=== PATIENT | male | born 1975 | race Caucasian/White ===

== ENCOUNTER 2022-02-15 08:20 | Observation (INO) | payer BC, SELFPAY ==
[2022-02-15 08:23] VITALS: BP 139/88; PULSE 94; RESP 16; TEMP 36.6; O2SAT 98; BMI 28.7
--- NOTE | 2022-02-15 08:54 | CTR_ITS ---
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 Radiation optimization: All CT scans at this facility use at least one of these dose optimization techniques: automated exposure control; mA and/or kV adjustment per patient size (includes targeted exams where dose is matched to clinical indication); or iterative reconstruction. Contrast material: OMNIPAQUE 300; Contrast volume: 50 ml; Contrast route: INTRAVENOUS (IV); COMPARISON: No relevant prior studies available. RADIATION DOSE METRICS: Total DLP (mGy-cm): 2061.35 FINDINGS: Lungs: The visualized lung bases demonstrate no focal airspace opacification or pleural effusion. Heart: The visualized heart is within normal limits for size. There is no evidence of pericardial abnormality. Liver: The liver is normal in size and contour. Gallbladder and bile ducts: The gallbladder is distended with normal wall thickness and does not demonstrate calcified gallstones. No intra- or extra-hepatic biliary ductal dilatation. Pancreas: The pancreas appears normal. Spleen: The spleen appears normal. Adrenal glands: The adrenals appear normal. Kidneys and ureters: The kidneys enhance symmetrically and empty into non-dilated ureters. Stomach and bowel: The stomach is appropriately distended and without wall abnormalities. The small bowel loops are not abnormally dilated. The large bowel loops are not abnormally dilated. Appendix: The appendix appears normal. Intraperitoneal space: No ascites or significant fluid collection. Vasculature: The aorta is nonaneurysmal. The IVC appears normal. Lymph nodes: Solitary enlarged right inguinal lymph node measuring up to 1.1 cm in the short axis. Urinary bladder: The bladder is distended and demonstrates no focal contour abnormality. Reproductive: The prostate demonstrates a few calcifications and is not enlarged. The seminal vesicles are unremarkable. Increased soft tissue density in the right inguinal canal. Scrotal edema noted. Minimal fat stranding in the right scrotum noted. No subcutaneous emphysema in the scrotum identified. No inflammatory changes identified in the lower pelvis. Bones/joints: Unremarkable. Soft tissues: See Reproductive finding. CT/CT abdomen pelvis w con* [id number] IMPRESSION: 1. Scrotal edema and fat stranding noted more prominent on the right versus the left, with minimal extension along the inguinal canal, concerning for infectious/inflammatory process. No subcutaneous emphysema identified. No definitive intra pelvic extension identified at this time. 2. Right inguinal lymphadenopathy.
--- NOTE | 2022-02-15 08:56 | W.ED.MALEGU ---
HPI - Male Genitourinary General: Chief complaint: Urogenital-Male Stated complaint: Boil on groin Time Seen by Provider: 02/15/22 08:51 History of Present Illness: 46-year-old male presents due to pain and swelling in his right scrotum. States that he noticed some area of swelling yesterday and tried to pop it however no pus came out now he states swelling is extending into his lower abdomen. Denies any abdominal pain however. Denies nausea vomiting diarrhea constipation. Denies urethral discharge or dysuria. States he is not diabetic. Review of Systems Narrative: - CONSTITUTIONAL: Denies weight loss, fever and chills. - HEENT: Denies changes in vision and hearing. - RESPIRATORY: Denies SOB and cough. - CV: Denies palpitations and CP. - GI: Denies abdominal pain, nausea, vomiting and diarrhea. - : As above - MSK: Denies myalgia and joint pain. - SKIN: Denies rash and pruritus. - NEUROLOGICAL: Denies headache, weakness, numbness and syncope. - PSYCHIATRIC: Denies suicidal ideation Physical Exam Narrative: EXAM NARRATIVE: - GENERAL: Alert and oriented x 3. No acute distress. Well-nourished. - EYES: EOMI. Anicteric. - HENT: Atraumatic, no C-spine tenderness. Moist mucous membranes. No scleral icterus. No cervical lymphadenopathy. - LUNGS: Clear to auscultation bilaterally. No accessory muscle use. Equal lung sounds bilaterally. No respiratory distress. - CARDIOVASCULAR: Regular rate and rhythm. No murmur. No JVD. - ABDOMEN: Soft, non-tender and non-distended. Negative CVA tenderness bilaterally, no rebound or guarding, negative Kenney sign. No palpable masses. : There is erythema and tenderness to the right scrotum but no testicular tenderness. There is streaking towards the right groin. No fluctuance. - EXTREMITIES: No edema. Non-tender. - SKIN: No rashes or lesions. Warm. - NEUROLOGIC: No meningismus or focal neurological deficits. CN II-XII grossly intact. - PSYCHIATRIC: Cooperative. Appropriate mood and affect. Course Vital Signs: Vital signs: Vital Signs Temperature 97.9 F 02/15/22 08:23 Pulse Rate 94 02/15/22 08:23 Respiratory Rate 16 02/15/22 08:23 Blood Pressure 139/88 02/15/22 08:23 Pulse Oximetry 98 02/15/22 08:23 MDM - Male Medical Decision Making 46-year-old presents due to scrotal pain and swelling. On exam does have an area of induration. CT scan does not reveal any free gas or signs of Carolina gangrene. There is no identified abscess. He has white count elevation 14 but otherwise hemodynamically stable afebrile nontoxic-appearing. Sepsis order set initiated. Discussed with urology and will place him in observation on IV antibiotics due to concern for scrotal cellulitis. Further evaluation and management per urology. Lab Data : 02/15/22 09:30 02/15/22 09:30 Radiology Impressions Abdomen/Pelvis CT 02/15/22 08:54 IMPRESSION: 1. Scrotal edema and fat stranding noted more prominent on the right versus the left, with minimal extension along the inguinal canal, concerning for infectious/inflammatory process. No subcutaneous emphysema identified. No definitive intra pelvic extension identified at this time. 2. Right inguinal lymphadenopathy. Laboratory Results WBC 14.9 10^3/uL (4.0-10.0) H 02/15/22 09:30 RBC 4.66 10^6/uL (4.1-5.3) 02/15/22 09:30 Hgb 14.4 g/dL (11.7-16.6) 02/15/22 09:30 Hct 42.1 % (42.0-52.0) 02/15/22 09:30 MCV 90.3 fl (80-94) 02/15/22 09:30 MCH 30.9 pg (28.0-34.0) 02/15/22 09:30 MCHC 34.2 g/dL (30.0-36.0) 02/15/22 09:30 RDW 11.9 % (12.1-15.1) L 02/15/22 09:30 Plt Count 197 10^3/cmm (130-400) 02/15/22 09:30 MPV 11.7 fL (7.4-10.4) H 02/15/22 09:30 Neut % (Auto) 78.9 % 02/15/22 09:30 Lymph % (Auto) 11.3 % 02/15/22 09:30 [place] % (Auto) 8.6 % 02/15/22 09:30 Eos % (Auto) 0.4 % 02/15/22 09:30 Baso % (Auto) 0.3 % 02/15/22 09:30 Neut # (Auto) 11.76 10^3/uL (1.8-7.7) H 02/15/22 09:30 Lymph # (Auto) 1.7 10^3/uL (0.8-4.8) 02/15/22 09:30 [place] # (Auto) 1.3 10^3/uL (0.2-0.9) H 02/15/22 09:30 Eos # (Auto) 0.1 10^3/uL (0.0-0.8) 02/15/22 09:30 Baso # (Auto) 0.0 10^3/uL (0.0-0.1) 02/15/22 09:30 Nucleated RBC % (auto) 0 % 02/15/22 09:30 Nucleated RBCs # 0.0 /100WBC 02/15/22 09:30 Discharge Plan Discharge Condition: Stable Referrals: Keenan Chisholm FNP [Primary Care Provider] - Coding Level of Care Code ED Christmas Bell Ringer for Yash Brito
[2022-02-15] MEDS: iohexol 300 mg/mL 50 mL Btl IV (09:29)
[2022-02-15] MEDS: sodium chloride 0.9% 1,000 ML 999 ML IV (09:30)
[2022-02-15] MEDS: piperacillin-tazobactam 3.375 GM in sodium chloride 0.9% (plus) 50 ML IV ×2 (09:30→19:30)
[2022-02-15 09:49] LABS: Basophils % 0.3 %; Eosinophils # 0.1 10^3/uL (0.0-0.8); Eosinophils % 0.4 %; Hematocrit 42.1 % (42.0-52.0); Hemoglobin 14.4 g/dL (11.7-16.6); Lymphocytes # 1.7 10^3/uL (0.8-4.8); Lymphocytes % 11.3 %; Mean Corpuscular HGB Conc 34.2 g/dL (30.0-36.0); Mean Corpuscular Hemoglobin 30.9 pg (28.0-34.0); Mean Corpuscular Volume 90.3 fl (80-94); Mean Platelet Volume 11.7 fL (7.4-10.4); Monocytes # 1.3 10^3/uL (0.2-0.9); Monocytes % 8.6 %; Neutrophils # 11.76 10^3/uL (1.8-7.7); Neutrophils % 78.9 %; Nucleated Red Blood Cells % 0 %; Platelet Count 197 10^3/cmm (130-400); Red Blood Count 4.66 10^6/uL (4.1-5.3); Red Cell Distribution Width 11.9 % (12.1-15.1); White Blood Count 14.9 10^3/uL (4.0-10.0)
[2022-02-15 10:09] LABS: Lactate (Lactic Acid level) 2.1 mmol/L (0.5-2.2)
[2022-02-15 10:11] LABS: Alanine Aminotransferase 21 U/L (0-41); Albumin Level 4.3 g/dL (3.5-5.2); Alkaline Phosphatase 76 IU/L (40-130); Anion Gap 15.9 (5-19); Aspartate Amino Transferase 19 U/L (0-40); Blood Urea Nitrogen 8 mg/dL (6-20); Calcium 9.5 mg/dL (8.5-10.5); Carbon Dioxide 23 mmol/L (22-29); Chloride 102 mmol/L (98-107); Globulin 2.8 g/dL (1.3-4.6); Glomerular Filtration Rate 122.5 mL/min (90-130); Glucose 99 mg/dL (65-115); Osmolality Calculated 282 mOsm/kg (285-295); Potassium 3.9 mmol/L (3.5-5.1); Sodium 137 mmol/L (136-145); Total Protein 7.1 g/dL (6.6-8.7)
[2022-02-15 10:15] LABS: Bilirubin Urine Neg (Negative); Blood Urine 2+ (Negative); Glucose Urine UA Norm (Normal); Ketones Urine Negative (Negative); Leukocyte Esterase Urine Negative (Negative); Nitrate Urine Negative (Negative); Protein Urine Neg (Negative); Specific Gravity, Urine 1.005 (1.005-1.030); Urine Appearance Clear (CLEAR); Urine Color Yellow (Yellow); Urobilinogen Urine Norm (Negative); pH Urine 7 (5-7)
[2022-02-15 10:16] LABS: RBC Urine 0-4 /hpf (0-2)
[2022-02-15 10:17] LABS: Add Urine Culture? No
--- NOTE | 2022-02-15 10:52 | P.HP_ITS ---
Providers/Chief Complaint Admitting Physician: Antonio Carlson MD Primary Care Provider: Keenan Chisholm Chief Complaint: Right hemiscrotal infection History of Present Illness Emil Duran is a 46 year old male who I evaluated for the first time today at the request of the emergency department. Presents with approximately 24 hours of increasing discomfort and swelling in the right hemiscrotum. First noticed to small pimple type lesion with some minimal expression of purulence manually. Since then has had increasing swelling and redness. CT scan was performed that demonstrated no evidence of gas in the tissue. There is a hint of fluid collection inferior to the scrotum but its not clear. It was read as not being consistent with a fluid collection. White count was elevated at almost 15. No evidence of clinical sepsis. Physical exam showed some thickening of the skin near the pimple site. No evidence of crepitus. No eschar. Some fullness below the scrotum. Cannot 100% rule out fluid collection. More likely cellulitis. Admitted for IV antibiotics. Review of Systems Const: Denies: fever(s) or chills Eyes: Denies: eye discharge ENMT: Denies: hoarseness Card: Denies: chest pain or palpitations Resp: Denies: dyspnea, productive cough or wheezing GI: Reports: other (GERD) : Reports: scrotal swelling (And pain); Denies: urinary frequency or urinary urgency Musc: Denies: joint redness or joint warmth Skin/Breast: Reports: other (See otherwise negative) Neuro: Denies: confusion, behavioral changes or Slurred speech present Psych: Denies: anxiety or depression Endo: Denies: flushing Abdelrahman/Lymph: Denies: easy bruising, easy bleeding or enlarged lymph nodes All/Imm: Denies: acute wheezing Medications/Allergies Home Medications Medication Instructions Recorded Confirmed Last Taken Type atenolol 25 mg tablet 25 mg PO DAILY 02/15/22 02/15/22 02/15/22 History esomeprazole magnesium 20 mg 20 mg PO DAILY 02/15/22 02/15/22 02/15/22 History capsule,delayed release (Nexium 24HR) lisinopril 10 mg tablet 10 mg PO DAILY 02/15/22 02/15/22 02/15/22 History hydrocodone 5 mg-acetaminophen 325 1 tab PO Q8H PRN #10 tab 02/16/22 Unknown Rx mg tablet levofloxacin 500 mg tablet 500 mg PO DAILY 14 Days #14 tab 02/16/22 Unknown Rx sulfamethoxazole 800 1 tab PO BID 14 Days #28 tab 02/16/22 Unknown Rx mg-trimethoprim 160 mg tablet Allergies Allergy/AdvReac Type Severity Reaction Status Date / Time No Known Allergies Allergy Verified 02/15/22 08:23 PFSH Acute PFSH: Family History (Updated 02/15/22 @ 10:58 by Antonio Carlson MD) Denies family history of Anesthesia complication Bleeding disorder Social History (Updated 02/15/22 @ 10:59 by Antonio Carlson MD) Marital status: Current occupational status: employed Vitals/I&O/Wt Last Vital Signs Temp 97.9 F 02/15/22 08:23 Pulse 94 02/15/22 08:23 Resp 16 02/15/22 08:23 BP 139/88 02/15/22 08:23 Pulse Ox 98 02/15/22 08:23 Weight last 48 hrs Weight 200 lb Physical Exam Const: COMMON NORMALS: no acute distress, alert and well nourished GENERAL APPEARANCE: well kempt and well developed ORIENTATION/CONSCIOUSNESS: not confused HENMT: HEAD & SCALP: normocephalic and atraumatic Eye: COMMON NORMALS: conjunctivae normal and no scleral icterus Neck/C-Spine: COMMON NORMALS: full ROM Resp: COMMON NORMALS: normal respiratory effort EFFORT & INSPECTION: No labored and No Actively coughing Cardio: COMMON NORMALS: regular rate and regular rhythm GI: OTHER: Soft nontender except for in the right groin. : COMMON NORMALS: No scrotum normal OTHER: Erythematous swollen right hemiscrotum with erythema extending up into the groin. There is some fullness below the right testicle. Not tense. There is a small area of pimple-like lesion on the lateral inferior aspect of the scrotum but no expressible discharge or purulence. No crepitus. No eschar. Not consistent with Carolina's gangrene. Back/Pelvis: COMMON NORMALS: no CVA tenderness Extremity: COMMON NORMALS: no clubbing, cyanosis or edema Neuro: COMMON NORMALS: no focal motor deficits SENSORIUM/ORIENTATION: Yes alert Psych: COMMON NORMALS: mental status grossly normal APPEARANCE: Yes grossly normal and Yes well kempt ATTITUDE: Yes calm and Yes engaged Skin: COMMON NORMALS: no rashes or lesions noted and no jaundice Data : 02/16/22 05:01 02/16/22 05:01 Micro: Microbiology 02/15/22 09:45 Blood Culture - Preliminary Blood SPECIMEN COLLECTED 02/15/22 09:35 Blood Culture - Preliminary Blood SPECIMEN COLLECTED A&P Assessment and plan (1) Scrotal infection: Most likely infection consistent with cellulitis. Cannot 100% rule out a scrotal abscess. Plan: Watch closely, IV antibiotics, incision and drainage if any further concern regarding abscess formation. Serial labs and exams Discussed fully the concerns for Carolina's in the absence of any symptoms at this point or signs at this point it would indicate that in him. Status: Acute (2) Hypertension: Continue home medication Status: Acute (3) GERD (gastroesophageal reflux disease): Continue home medication Status: Acute (4) Brown's esophagus with esophagitis: Status: Acute Plan Admit for IV antibiotics and frequent reassessment of the wound. Surgical drainage if development of abscess Attestations Medical Necessity Statement*: Scrotal infection with elevated white count. E xpect that he will not require surgery but is not 100% clear at this point. See above Coding Level of Care Code Acute [employer] Operator for Chg Fwd Exam Comprehensive Diagnoses Hypertension I10 GERD (gastroesophageal reflux disease) K21.9 Brown's esophagus with esophagitis K22.70; K20.90 Scrotal infection N49.2
[2022-02-15 11:29] VITALS: BP 106/64; PULSE 66; RESP 16; TEMP 37.3; O2SAT 100
[2022-02-15 12:00] VITALS: BP 102/62; PULSE 72; RESP 16; TEMP 36.9; O2SAT 97
[2022-02-15] MEDS: D5-NS 0.45% + KCL 20 mEq 20 MEQ/1,000 ML BAG 75 MEQ IV (12:49)
[2022-02-15 15:01] VITALS: BP 109/64; PULSE 68; RESP 16; TEMP 36.8; O2SAT 97
[2022-02-15] MEDS: pantoprazole DR 40 mg Tablet PO (17:37)
[2022-02-15 20:00] VITALS: BP 129/75; PULSE 84; RESP 17; TEMP 37; O2SAT 97
[2022-02-16] VITALS: BP 135/70; PULSE 84; RESP 17; TEMP 37.2; O2SAT 96
[2022-02-16 04:00] VITALS: BP 109/65; PULSE 68; RESP 16; TEMP 36.9; O2SAT 96
[2022-02-16] MEDS: piperacillin-tazobactam 3.375 GM in sodium chloride 0.9% (plus) 50 ML IV (04:13)
[2022-02-16 05:26] LABS: Basophils % 0.3 %; Eosinophils # 0.2 10^3/uL (0.0-0.8); Eosinophils % 2.4 %; Hematocrit 39.8 % (42.0-52.0); Hemoglobin 13.3 g/dL (11.7-16.6); Lymphocytes # 1.9 10^3/uL (0.8-4.8); Lymphocytes % 20.2 %; Mean Corpuscular HGB Conc 33.4 g/dL (30.0-36.0); Mean Corpuscular Hemoglobin 30.6 pg (28.0-34.0); Mean Corpuscular Volume 91.7 fl (80-94); Mean Platelet Volume 11.5 fL (7.4-10.4); Monocytes # 0.8 10^3/uL (0.2-0.9); Monocytes % 8.9 %; Neutrophils # 6.31 10^3/uL (1.8-7.7); Nucleated Red Blood Cells % 0 %; Platelet Count 176 10^3/cmm (130-400); Red Blood Count 4.34 10^6/uL (4.1-5.3); Red Cell Distribution Width 12.1 % (12.1-15.1); White Blood Count 9.3 10^3/uL (4.0-10.0)
[2022-02-16 05:36] LABS: Anion Gap 12.1 (5-19); Blood Urea Nitrogen 6 mg/dL (6-20); Calcium 8.4 mg/dL (8.5-10.5); Carbon Dioxide 25 mmol/L (22-29); Chloride 103 mmol/L (98-107); Glomerular Filtration Rate 122.5 mL/min (90-130); Glucose 109 mg/dL (65-115); Osmolality Calculated 280 mOsm/kg (285-295); Potassium 4.1 mmol/L (3.5-5.1); Sodium 136 mmol/L (136-145)
--- NOTE | 2022-02-16 06:50 | P.DS_ITS ---
Discharge Providers Date of Admission: 02/15/22 10:00 Date of Discharge: February 16, 2022 Attending Provider at Admission: Antonio Carlson MD Attending Provider at Discharge: Antonio Carlson MD Primary Care Provider: Keenan Chisholm Diagnoses at Discharge Discharge Diagnosis (1) Scrotal infection: Details from hospital stay: No clear development of abscess. Antibiotics improved overall condition including white count, erythema, swelling. No development of tense fluid collection Status: Acute (2) Hypertension: Details from hospital stay: Utilized home medications Status: Acute (3) GERD (gastroesophageal reflux disease): Status: Acute (4) Brown's esophagus with esophagitis: Status: Acute Reason for Visit Reason for Visit: Right hemiscrotal infection Brief History: 46-year-old white male who presented with 1 day history of increasing swelling erythema and pain in the right hemiscrotum after trying to pop a pimple on the scrotum. CT scan showed no evidence of gas in the tissues. He was admitted for antibiotic therapy with no clear evidence at that time of abscess which would require drainage. Hospital Course Hospital Course Admitted through the emergency department on 02/15/2022. Placed on IV antibiotics. His white count decreased from 14.9 down to 9.3 on the day of discharge hospital day #2. There was decreased swelling and erythema as well as tenderness. He was deemed a good candidate for further convalescence and oral antibiotic treatment at home. He was afebrile with good vital signs at discharge Reviewed my out-of-town schedule with him from 02/18/2022 to 03/03/2022. We will schedule a follow-up appointment with my nurse practitioner neck early next week or sooner if necessary. Physical Exam Narrative: Alert oriented no acute distress Abdomen soft nontender no palpable mass organomegaly appreciated Genitourinary: Decreased erythema and swelling. No development of tense abscess. He shearing machine tender in the groin but there is less erythema and decreased swelling as well. Good range of motion of No focal neurologic defect No lymphadenopathy palpable. No lymphedema. Discharge Data Studies Completed and Pending Completed Studies During Hospitalization Category Date Time Status CT abdomen pelvis w con* [id number] Stat Cat Scan 02/15/22 08:54 Completed Pending at discharge Category Date Time Status Blood Culture Stat Lab 02/15/22 09:45 Results Radiology Impressions Abdomen/Pelvis CT 02/15/22 08:54 IMPRESSION: 1. Scrotal edema and fat stranding noted more prominent on the right versus the left, with minimal extension along the inguinal canal, concerning for infectious/inflammatory process. No subcutaneous emphysema identified. No definitive intra pelvic extension identified at this time. 2. Right inguinal lymphadenopathy. Laboratory Results WBC 9.3 10^3/uL (4.0-10.0) 02/16/22 05:01 RBC 4.34 10^6/uL (4.1-5.3) 02/16/22 05:01 Hgb 13.3 g/dL (11.7-16.6) 02/16/22 05:01 Hct 39.8 % (42.0-52.0) L 02/16/22 05:01 MCV 91.7 fl (80-94) 02/16/22 05:01 MCH 30.6 pg (28.0-34.0) 02/16/22 05:01 MCHC 33.4 g/dL (30.0-36.0) 02/16/22 05:01 RDW 12.1 % (12.1-15.1) 02/16/22 05:01 Plt Count 176 10^3/cmm (130-400) 02/16/22 05:01 MPV 11.5 fL (7.4-10.4) H 02/16/22 05:01 Neut % (Auto) 68.0 % 02/16/22 05:01 Lymph % (Auto) 20.2 % 02/16/22 05:01 [place] % (Auto) 8.9 % 02/16/22 05:01 Eos % (Auto) 2.4 % 02/16/22 05:01 Baso % (Auto) 0.3 % 02/16/22 05:01 Neut # (Auto) 6.31 10^3/uL (1.8-7.7) 02/16/22 05:01 Lymph # (Auto) 1.9 10^3/uL (0.8-4.8) 02/16/22 05:01 [place] # (Auto) 0.8 10^3/uL (0.2-0.9) 02/16/22 05:01 Eos # (Auto) 0.2 10^3/uL (0.0-0.8) 02/16/22 05:01 Baso # (Auto) 0.0 10^3/uL (0.0-0.1) 02/16/22 05:01 Nucleated RBC % (auto) 0 % 02/16/22 05:01 Nucleated RBCs # 0.0 /100WBC 02/16/22 05:01 Sodium 136 mmol/L (136-145) 02/16/22 05:01 Potassium 4.1 mmol/L (3.5-5.1) 02/16/22 05:01 Chloride 103 mmol/L (98-107) 02/16/22 05:01 Carbon Dioxide 25 mmol/L (22-29) 02/16/22 05:01 Anion Gap 12.1 (5-19) 02/16/22 05:01 BUN 6 mg/dL (6-20) 02/16/22 05:01 Creatinine 0.7 mg/dL (0.7-1.2) 02/16/22 05:01 GFR Calculation 122.5 mL/min (90-130) 02/16/22 05:01 Glucose 109 mg/dL (65-115) 02/16/22 05:01 Calculated Osmolality 280 mOsm/kg (285-295) L 02/16/22 05:01 Lactate 2.1 mmol/L (0.5-2.2) 02/15/22 09:30 Calcium 8.4 mg/dL (8.5-10.5) L 02/16/22 05:01 Total Bilirubin 1.0 mg/dL (0.15-1.2) 02/15/22 09:30 AST 19 U/L (0-40) 02/15/22 09:30 ALT 21 U/L (0-41) 02/15/22 09:30 Alkaline Phosphatase 76 IU/L (40-130) 02/15/22 09:30 Total Protein 7.1 g/dL (6.6-8.7) 02/15/22 09:30 Albumin 4.3 g/dL (3.5-5.2) 02/15/22 09:30 Globulin 2.8 g/dL (1.3-4.6) 02/15/22 09:30 Urine Color Yellow (Yellow) 02/15/22 08:30 Urine Appearance Clear (CLEAR) 02/15/22 08:30 Urine pH 7 (5-7) 02/15/22 08:30 Ur Specific Pfeifer 1.005 (1.005-1.030) 02/15/22 08:30 Urine Protein Neg (Negative) 02/15/22 08:30 Urine Glucose (UA) Norm (Normal) 02/15/22 08:30 Urine Ketones Negative (Negative) 02/15/22 08:30 Urine Blood 2+ (Negative) H 02/15/22 08:30 Urine Nitrate Negative (Negative) 02/15/22 08:30 Urine Bilirubin Neg (Negative) 02/15/22 08:30 Urine Urobilinogen Norm mg/dL (Negative) 02/15/22 08:30 Ur Leukocyte Esterase Negative (Negative) 02/15/22 08:30 Urine RBC 0-4 /hpf (0-2) H 02/15/22 08:30 Urine WBC None /hpf (0-5) 02/15/22 08:30 Ur Squamous Epith Cells None /hpf (0-5) 02/15/22 08:30 Amorphous Sediment Not Reportable 02/15/22 08:30 Urine Bacteria None /hpf (NONE) 02/15/22 08:30 Procedures Performed IV antibiotics only Vitals Last Vital Signs Temp 98.5 F 02/16/22 04:00 Pulse 68 02/16/22 04:00 Resp 16 02/16/22 04:00 BP 109/65 02/16/22 04:00 Pulse Ox 96 02/16/22 04:00 Discharge Plan Discharge Patient Disposition: Home Condition: Stable Prescriptions: New hydrocodone-acetaminophen 5-325 mg tablet 1 tab PO Q8H PRN (Reason: pain) Qty: 10 0RF sulfamethoxazole-trimethoprim 800-160 mg tablet 1 tab PO BID 14 Days Qty: 28 1RF levofloxacin 500 mg tablet 500 mg PO DAILY 14 Days Qty: 14 1RF Continued atenolol 25 mg tablet 25 mg PO DAILY 0RF lisinopril 10 mg tablet 10 mg PO DAILY 0RF Nexium 24HR 20 mg Capsule,Delayed Release(Dr/Ec) 20 mg PO DAILY 0RF Discharge Orders: Discharge Order (Routine); Ordered 02/16/22 Ordered By: Antonio Carlson Referrals: Antonio Carlson MD [Physician] - 1 week (With [facility] for wound check) Keenan Chisholm FNP [Primary Care Provider] - Discharge Diet: Usual diet Discharge Activity: Limit activity as instructed Patient Instructions: Opioid Safety Activity Restrictions/Additional Instructions: Urology instructions: 1. It does not appear that there is an abscess and if that is the case the infection should clear with the antibiotics provided 2. Please take it easy for several days to allow full impact of treatment. 3. Elevate on a couple towels when laying down which may help reduce swelling and discomfort 4. An ice pack or frozen peas may help with discomfort 5. As reviewed I will be out of town from the until the . 6. [facility] Centeno my nurse practitioner will be available during that time. The office number is [phone] 7. We will plan on a follow-up visit early next week for check Discharge Attestations Time Spent in Discharge Care*: greater than 30 min Quality Metrics Clinical Quality Measures [ No reported AMI, CVA or VTE this stay] Coding Level of Care Code Acute Chg FW DC note Diagnoses Scrotal infection N49.2 Hypertension I10 GERD (gastroesophageal reflux disease) K21.9 Brown's esophagus with esophagitis K22.70; K20.90
[2022-02-16 07:29] VITALS: BP 119/80; PULSE 81; RESP 16; TEMP 37.1; O2SAT 97
[2022-02-16] MEDS: lisinopril 10 mg Tablet PO (09:07)
[2022-02-16] MEDS: pantoprazole DR 40 mg Tablet PO (09:07)
[2022-02-16] MEDS: atenolol 50 mg Tablet 25 MG PO (09:08)
[2022-02-16 10:55] VITALS: BP 119/80; PULSE 81; RESP 16; TEMP 37.1; O2SAT 97
== END 2022-02-16 10:56 | disposition home or self-care (01) ==
LOC: ER 08:57 → MEDSURG 10:52
PROVIDERS: Admitting Provider Urology; Emergency Provider Emergency Medicine; PCP Nurse Practitioner Family; Visit Provider Urology
DX: N49.2 Inflammatory disorders of scrotum (principal); I10 Essential (primary) hypertension; K21.9 Gastro-esophageal reflux disease without esophagitis; K22.70 Barrett's esophagus without dysplasia; K20.90 Esophagitis, unspecified without bleeding
CPT/HCPCS: 36415; 74177; 80048; 80053; 81001; 83605; 85025; 87040; 96365; 96367; 99285; G0378; J2543; J3370; J7030; J7040; J7050; Q9967

== ENCOUNTER → 2022-02-23 08:29 | Outpatient (BNVA) | payer BC, SELFPAY | PROVIDERS: PCP Nurse Practitioner Family; Visit Provider Nurse Practitioner Family | DX: N49.2 Inflammatory disorders of scrotum (principal) | CPT/HCPCS: 81003 ==